=== PATIENT | male | born 2005 | race Two or more races ===

== ENCOUNTER 2025-05-08 20:28 | Emergency (ER) | payer SELFPAY ==
[~2025-05-08] VITALS: Ht 167.6 cm; Wt 72.7 kg
[2025-05-08 20:31] VITALS: BP 162/87; TEMP 97.8; O2SAT 98
== END 2025-05-08 23:00 | disposition left against medical advice (07) ==
LOC: M ED 20:28
DX: Z53.21 Procedure and treatment not carried out due to patient leaving prior to being seen by health care provider (principal)